=== PATIENT | female | born 1945 | race Caucasian/White ===

== ENCOUNTER 2018-08-01 20:43 | Emergency (ER) | payer OTHER, SELFPAY ==
[2018-08-01 20:43] VITALS: BP 158/71; PULSE 87; RESP 16; TEMP 36.5; O2SAT 95; BMI 31.0
--- NOTE | 2018-08-01 21:10 | ED.DCSUM_ITS ---
History of Present Illness Chief Complaint: Lower Extremity Injury Informant: Patient Occurred: Today Onset: Today Context: Sudden Onset Timing: Continuous Quality of Pain: Dull Location: Posterior lateral right knee Current Severity: Mild Maximum Severity: Severe Worsened by: Flexion and extension and weightbearing Relieved by: Nothing Associated Symptoms: Negative for: Parasthesia, Weakness, Loss of Funtion Narrative: Meniscal repair by Dr. Jono cD. Since with pain that she localizes posterior lateral right knee walking up steps. There is no history of direct trauma. She states the right knee is normally larger than the left. She states she is unable to extend come completely which is not abnormal. She is not able to flex past 120 degrees, which is abnormal. There is no history of PE or DVT. She denies paresthesia, anesthesia or motor weakness. Tetanus Immunization: 5-10 years Prior similar symptoms: Yes Recent Illness/Hospitalization: No - Past Medical History (1) No significant past medical history Status: Acute Past Medical History - Allergies and Home Meds Allergies/Adverse Reactions: Allergies No Known Allergies Allergy (Verified 08/01/18 20:45) Primary Care Physician: Lang Sharma DO [Primary Care Provider] - Prior records reviewed: Yes Surgical History: - - Meniscus repair by Dr. Jono Dc Smoking Status: Never smoker Drugs: None Review of Systems General: Denies: Chills, Fever, Sweats, Weight loss Musculoskeletal: Reports: Extremity Pain. Denies: Myalgias, Arthralgias, Neck pain, Back pain, Swelling Neurological: Denies: Weakness, Parasthesia, Numbness Hematologic: Denies: Easy bruising, Easy bleeding Physical Exam Vital Signs/Narrative: Vital Signs Temp Pulse Resp BP Pulse Ox 08/01/18 20:43 97.7 F L 87 16 158/71 H 95 Inital Vital Signs reviewed: Yes - Extremity Exam Right Femur: Negative for: Abrasion, Contusion, Deformity, Edema, Hematoma, Limited ROM, - Right Knee: Limited ROM - Extension to 170 degrees and flexion to 120 degrees. The right knee is swollen compared to the left. The patella is not ballotable. There is no obvious effusion. There is laxity with varus stress testing with increased discomfort. There is no laxity of the medial collateral ligament with valgus stress testing. Unable to perform Ángel's test because unable to flex past 120 degrees. Attempt to perform modified Darron's test resulted in a audible click and pain but unable to localize.. Negative for: Abrasion, Contusion, Deformity, Edema, Hematoma Right Tib fib: Negative for: Abrasion, Contusion, Deformity, Edema, Hematoma, Limited ROM, - Right Ankle: Negative for: Abrasion, Contusion, Deformity, Edema, Hematoma, Limited ROM, - General: Well nourished, Well developed Head: Normocephalic, Atraumatic Eyes: Perrl, EOMI Cardiovascular: Regular rate, Regular rhythm Respiratory: No distress Neurological: Alert, Oriented x3, Cranial nerves II-XII grossly intact, Normal Strength, Normal Sensation. Negative for: Normal Gait Psychological: Normal affect, Normal Mood Diagnostic/Tx/Re-eval Chest X-Ray - ED: Read by ED Physician 4 view x-ray of the knee was obtained. There is significant degenerative changes. There is asymmetry of the joint. There is calcification of the popliteal artery. There is no fracture noted. There is no obvious effusion noted. - Medical Decision Making Patient was offered pain medicine, which she declined. She states she took medicine prior to presentation. Because of limited range of motion and laxity of the lateral collateral ligament with possible positive modified Darron's test will obtain x-ray of the knee. Suspect meniscus injury. X-ray was unremarkable. Suspect probable posterior lateral meniscus injury/tear. Since she had surgery by Dr. Jono Dc in the past will refer her to Jono Dc. ED Disposition - Plan for ED Patient: Disposition: Home or Assisted Living Diagnosis: Acute lateral meniscus tear of right knee Instructions: ED Meniscal Injury Knee Poss Referrals: Lang Sharma DO [Primary Care Provider] - Jono Dc MD [STAFF PHYSICIAN] - 5-7 Days Additional Instructions: Weight-bear as tolerated. Ice to knee 6-8 times a day. Take either Tylenol or ibuprofen for your discomfort. Follow-up with Dr. Dc in 5-7 days for re- evaluation/examination.
--- NOTE | 2018-08-01 21:20 | RAD_ITS ---
STUDY: X-RAY - RIGHT KNEE REASON FOR EXAM: Female, 72 years old. Unable to bear weight TECHNIQUE: 4 view(s) of the knee. COMPARISON: None. FINDINGS: Normal visualized distal femur. Normal visualized proximal tibia and fibula. Normal proximal tibiofibular articulation. Degenerative spurring at the medial femorotibial compartment. Degenerative spurring at the lateral femorotibial compartment. Degenerative spurring and narrowing at the patellofemoral articulation. Mild suprapatellar effusion. The soft tissue structures are unremarkable. Vascular calcifications. RAD/Knee 4 or More Views IMPRESSION: Degenerative changes of the knee. Mild suprapatellar effusion. Electronically Signed: Trav Salgado DO at 21:38 EDT Tel [phone], Service support ,
== END 2018-08-01 21:53 | disposition home or self-care (01) ==
PROVIDERS: Emergency Provider Emergency Medicine; Family Provider Family Medicine; PCP Family Medicine
DX: S83.281A Other tear of lateral meniscus, current injury, right knee, initial encounter (principal); X58.XXXA Exposure to other specified factors, initial encounter; Y93.9 Activity, unspecified; Y92.9 Unspecified place or not applicable; Y99.9 Unspecified external cause status
CPT/HCPCS: 73564; 99282

== ENCOUNTER 2022-10-26 08:03 | Emergency (ER) | payer OTHER, SELFPAY ==
[2022-10-26 08:04] VITALS: BP 167/93; PULSE 79; RESP 16; TEMP 36.3; O2SAT 93; BMI 34.4
--- NOTE | 2022-10-26 08:06 | NURSING ---
NO OLD EKGS
--- NOTE | 2022-10-26 08:12 | ED.VIS.CHEST ---
HPI History of Present Illness Chief Complaint: Chest Pain Narrative Narrative: 76-year-old female past medical history of type 2 diabetes on metformin presents with dizziness and chest pain that she had this morning. She states she woke up this morning around 630, almost 2 hours ago and was dizzy and lightheaded. She crawled to the bathroom, she checked her sugar and it was 87. She went to lay down for rest and experienced 6 to 7 minutes of chest pain. She describes it more like a pressure in the left side of her chest. That has resolved and not returned. She also states that she is no longer dizzy or lightheaded. There was no nausea or vomiting accompanied with this. No diaphoresis or shortness of breath. She denies any other symptoms and states she almost feels back to normal. She is pain-free currently. [facility] Medical History (Updated 10/26/22 @ 11:12 by Rip Nunn MD) Diabetes High cholesterol Home Medications metformin 1,000 mg tablet 1,000 mg PO BID 10/26/22 [History Last Taken Unknown] rosuvastatin 20 mg tablet 20 mg PO .weekly 10/26/22 [History Last Taken Unknown] Allergy/AdvReac Type Severity Reaction Status Date / Time No Known Allergies Allergy Verified 10/26/22 08:04 Social History Smoking Status: Never smoker ROS ROS ED ROS Narrative Constitutional: No fever, no chills. HEENT: No sore throat. No neck pain. No loss of vision. No rhinorrhea. Cardiovascular: Left-sided chest pressure/chest pain. No palpitations. No pedal edema. Respiratory: No cough, no shortness of breath. Abdominal: No abdominal pain. No nausea. No vomiting. Genitourinary: No dysuria. No hematuria. Musculoskeletal: No myalgias. No arthralgias. Neurologic: No headaches. Positive dizziness. No lightheadedness. Skin: No rash. No change in color. Psychiatric: No depression. No anxiety. EXAM Physical Exam Narrative Exam Narrative: Afebrile. Vital signs noted. HEENT: Normocephalic. Atraumatic. PERRL, EOMI. Neck soft and supple. No point tenderness or step off. Cardiovascular: Regular rate and rhythm. No murmurs, rubs, or gallops appreciated. Respiratory: No tachypnea. Lungs clear to auscultation bilaterally. Gastrointestinal: Abdomen soft, nontender, with normoactive bowel sounds. No rebound or guarding. Neurological: Awake. Alert. Nonfocal, nonlateralizing. Skin: No rash. Normal color. No pallor. Musculoskeletal: No pedal edema. Full range of motion extremities. Const Vital Signs: 10/26/22 08:04 10/26/22 08:10 10/26/22 08:14 Temperature 97.4 F L Temperature Source Temporal Pulse Rate 79 Respiratory Rate 16 Respiratory Effort Normal Non-Labored Blood Pressure 167/93 H Blood Pressure Mean 117 Pulse Ox 93 94 Oxygen Delivery Method Room Air 10/26/22 09:15 Temperature Temperature Source Pulse Rate 69 Respiratory Rate 16 Respiratory Effort Blood Pressure 167/78 H Blood Pressure Mean 107 Pulse Ox 97 Oxygen Delivery Method Room Air Heart Score History: Slightly/Non-Suspicious ECG: Normal Age: >/= 65 years Risk Factors: 1 or 2 Risk Factors Score: 3 MDM MDM MDM Narrative Medical decision making narrative: In the differential diagnosis is transient hypoglycemia, acute coronary syndrome, and vasovagal near syncope. Chest pain work-up was pursued. She does have risk factors that include her age and diabetes. EKG was obtained and interpreted by myself independently as normal sinus rhythm with first-degree AV block at 81 bpm without ectopy or acute ST changes, although she does have T wave inversion inferiorly. There may be slight ST depression laterally, but no prior with which to compare. No STEMI. She was administered aspirin. I reviewed the patient's laboratory work and she has a normal white count of 4.9, hemoglobin normal at 12.1, hematocrit 37.9, normal platelet count of 165. BMP is also grossly unremarkable except for chloride slightly elevated at 111 which I think is nonspecific, normal BUN of 15, normal creatinine of 0.86. While glucose is elevated at 194. She has a normal anion gap/low at 4. I am not concerned for diabetic ketoacidosis. Her initial high-sensitivity troponin is 26. I reviewed her chest x-ray independently and see no evidence of acute pneumothorax or pneumonia. I reviewed the radiology report which confirms my independent interpretation. Her 2-hour troponin is 38, and still negative. She has a delta that is less than 20. She has also had 2 negative troponins. I do not feel she requires observation at this time. She has remained pain-free. According to the high-sensitivity troponin guidelines, it was felt she can be discharged to follow-up with cardiology as her troponins are negative. I spoke with the patient and her family. They relate history that about a month or so ago she went to her primary care provider who performed an EKG, which was faxed to a specialist in [place]. They have set up an appointment with the assistant front office manager/specialist for today at 3 PM. These may be the EKG changes which I noticed on my interpretation. Additionally, they state that she was given nitroglycerin to take, but she did not take it this morning because she did not know what it was. While I do not feel that she requires admission here, I do feel that she may need outpatient stress testing. I feel she can be discharged to follow-up with cardiology today. Through shared decision making and discussion with the patient, she would like to be discharged to follow-up with cardiology today, however strict return instructions to the emergency department were reviewed. Disposition is discharged home in stable condition. History & Record Review Discussion w/independent historian: Patient and Family Additional record(s) reviewed:: Prior ED visit Lab Data Attestation: I reviewed the patient's lab results. Labs: Laboratory Results - last 24 hr 10/26/22 10/26/22 08:09 10:09 WBC 4.9 RBC 4.47 Hgb 12.1 Hct 37.9 MCV 84.8 MCH 27.1 MCHC 31.9 L RDW Std Deviation 39.2 RDW Coeff of Waqar 12.8 Plt Count 165 MPV 10.1 Immature Gran % (Auto) 0.400 Neut % (Auto) 51.1 Lymph % (Auto) 37.5 Gates % (Auto) 6.3 Eos % (Auto) 4.3 Baso % (Auto) 0.4 Absolute Neuts (auto) 2.5 Absolute Lymphs (auto) 1.84 Nucleated RBC % 0 Sodium 142 Potassium 3.9 Chloride 111 H Carbon Dioxide 27.0 Anion Gap 4 L BUN 15 Creatinine 0.86 Estim Creat Clear Calc 55.81 Est GFR (MDRD) Af Amer 83 Est GFR (MDRD) Non-Af 69 BUN/Creatinine Ratio 17.5 Glucose 194 H Calcium 8.7 Troponin I High Sens 26 38 Radiography Diagnostic Testing: Clinical Impression(s) from Imaging Studies Chest X-Ray 10/26/22 08:25 IMPRESSION: Normal x-ray examination of the chest. Electronically Signed: Kevin Bustos MD at 8:37 EDT , Discharge Plan Triage Chief Complaint: Chest Pain ED Provider: Rip Nunn Dx/Rx/DC Orders Clinical Impression: Dizziness, Abnormal EKG, Chest pain Instructions: ED Chest Pain, Uncertain Cause, ED Dizziness, Uncertain Cause Prescriptions: No Action metformin 1,000 mg tablet 1,000 mg PO BID Patient Comments: TAKE 1 TABLET BY MOUTH TWICE DAILY rosuvastatin 20 mg tablet 20 mg PO .weekly Patient Comments: TAKE 1 TABLET BY MOUTH ONCE A WEEK Primary Care Provider: Lang Sharma Referrals: Lang Sharma DO [Primary Care Provider] - Activity Restrictions/Additional Instructions: Follow-up with the assistant front office manager as scheduled today at 3 PM. Disposition Disposition: Home, Self Care
[2022-10-26 08:14] VITALS: O2SAT 94
[2022-10-26] MEDS: Aspirin 81 MG TAB.CHEW 324 MG PO (08:19)
--- NOTE | 2022-10-26 08:25 | RAD_ITS ---
STUDY: X-RAY CHEST REASON FOR EXAM: Female, 76 years old. chest pain TECHNIQUE: Single AP portable view of the chest. COMPARISON: None. FINDINGS: The lungs are clear and expanded. There is no demonstrated pleural abnormality. Normal size heart. Normal mediastinum and augusto. Normal visualized pulmonary arteries. Normal visualized aortic arch and descending thoracic aorta. Normal visualized thoracic spine. Normal visualized ribs, clavicles, and shoulders. There is no demonstrated abnormality of the visualized soft tissue structures of the upper abdomen. RAD/Chest 1 View (Portable) IMPRESSION: Normal x-ray examination of the chest. Electronically Signed: Kevin Bustos MD at 8:37 EDT ,
[2022-10-26 08:31] LABS: Absolute Lymphocyte Count 1.84 X10^3/uL (0.83-4.51); Absolute Neutrophil Count 2.5 X10^3/uL (2.0-7.7); Basophil# 0.02 X10^3/uL; Basophil% 0.4 % (0-1); Eosinophil# 0.21 X10^3/uL; Eosinophils% 4.3 % (0-5); Hematocrit 37.9 % (37-47); Hemoglobin 12.1 g/dL (12.0-15.0); Lymphocyte # 1.84 X10^3/ul (0.83-4.51); Lymphocyte % 37.5 % (19-41); Mean Corp Hgb Conc 31.9 g/dL (32-36); Mean Corpuscular Hgb 27.1 pg (27.0-32.0); Mean Corpuscular Volume 84.8 fL (81-99); Mean Platelet Vol. 10.1 fl (6.2-12.0); Monocyte# 0.31 X10^3/uL; Monocyte% 6.3 % (0-10); NRBC Flagged by Analyzer 0 % (0-5); Neutrophil # 2.51 X10^3/uL (2.7-7.7); Neutrophil % 51.1 % (47-70); Platelet Count 165 K/mm3 (150-450); RBC Distribution Width CV 12.8 % (11.6-14.6); RBC Distribution Width SD 39.2 fl (35.1-43.9); Red Blood Count 4.47 M/mm3 (4.2-5.4); White Blood Count 4.9 K/mm3 (4.4-11.0)
[2022-10-26 08:49] LABS: Anion Gap 4 (5-15); BUN 15 mg/dL (7-18); BUN/Creat Ratio 17.5 RATIO (10-20); Calcium,Total 8.7 mg/dL (8.5-10.1); Chloride 111 mmol/L (98-107); Creatinine, Serum 0.86 mg/dL (0.55-1.02); EST Glomerular Filtration Rate 69 mL/min (>60); Est Glom Filt Rate - Afr Amer 83 mL/min (>60); Estimated Creatinine Clearance 55.81 ml/min; Glucose 194 mg/dL (74-106); Potassium 3.9 mmol/L (3.5-5.1); Sodium Level 142 mmol/L (136-145); Troponin-I HS (w/2H Reflex) 26 pg/mL (3.0-54.0)
[2022-10-26 09:15] VITALS: BP 167/78; PULSE 69; RESP 16; O2SAT 97
[2022-10-26 10:27] LABS: Reflex Troponin-HS? (from REC) Y
[2022-10-26 10:59] LABS: Troponin-I HS 38 pg/mL (3.0-54.0)
[2022-10-26 11:38] VITALS: BP 126/74; PULSE 61; RESP 15; O2SAT 98
== END 2022-10-26 11:40 | disposition home or self-care (01) ==
PROVIDERS: Emergency Provider Emergency Medicine; PCP Family Medicine; Visit Provider Emergency Medicine
DX: R42 Dizziness and giddiness (principal); E11.65 Type 2 diabetes mellitus with hyperglycemia; R07.9 Chest pain, unspecified; Z79.84 Long term (current) use of oral hypoglycemic drugs; I44.0 Atrioventricular block, first degree; E78.00 Pure hypercholesterolemia, unspecified; Z79.899 Other long term (current) drug therapy
CPT/HCPCS: 71045; 80048; 84484; 85025; 93005; 99285; A4216

== ENCOUNTER → 2022-12-08 | Outpatient (CLI) | payer SELFPAY, OTHER ==
--- NOTE | 2022-12-08 08:11 | VDLE_ITS ---
Reason For Study: LLE Swelling RIGHT LEFT CFV is compressible, spontaneous, phasic, CFV is compressible, spontaneous, phasic, competent and demonstrates normal competent, and demonstrates normal augmentation. augmentation. Procedure FV is compressible, spontaneous, phasic, This is a venous duplex using B-mode, color competent and demonstrates normal flow and spectral Doppler. augmentation. Exam performed in department. POP V is compressible, spontaneous, phasic, A preliminary report was called and/or faxed competent and demonstrates normal to Dr. Sharma. augmentation. T/P Trunk is compressible. PTV is compressible. LT PerV is compressible. Lt GSV harvested for CABG 11/11/22 Hypoechoic, non vascular structures noted in areas of Lt GSV harvesting from prox thigh to prox calf. VL/Venous Duplex US, Unilateral Interpretation Summary Deep veins of the left lower extremity are patent and compressible segmentally. There is no evidence of left lower extremity deep vein thrombosis. Hypoechoic, non vascular structur es noted in areas of left GSV harvesting from proximal thigh to proximal calf. Ordering Physician: Lang Sharma Referring Physician: Lang Sharma Performed By: Fadumo Morton, RDCS, RVT
== END | disposition home or self-care (01) ==
PROVIDERS: PCP Family Medicine; Referring Provider Family Medicine; Visit Provider Family Medicine
DX: M79.89 Other specified soft tissue disorders (principal)
CPT/HCPCS: 93971

== ENCOUNTER → 2023-01-13 | Outpatient (CLI) | payer SELFPAY, OTHER ==
--- NOTE | 2023-01-13 10:09 | ECHOD_ITS ---
Reason For Study: CABG, pericardial condition Procedure This was a 2D Doppler, Color Flow transthoracic echocardiogram. Exam performed in department. Left Ventricle Normal LV size. Left ventricular systolic function is normal. The estimated ejection fraction is 54 %. Stage 1 diastolic dysfunction. No regional wall motion abnormalities noted. Right Ventricle Normal RV size. Normal systolic function. Atria Normal left atrium. Normal right atrium. Mitral Valve Normal mitral valve. Tricuspid Valve Normal tricuspid valve. Mild tricuspid valve insufficiency. Pulmonary artery systolic pressure is 37 mmHg. Aortic Valve Trisinus/trileaflet aortic valve. Mild focal aortic valve calcification. Mild aortic stenosis. Pulmonic Valve Normal pulmonic valve. Great Vessels Normal aortic root. Pericardium/Pleural No pericardial effusion. MMode/2D Measurements & Calculations LVIDd: 4.4 cm IVSd: 1.2 cm LVOT diam: 2.0 cm LVIDs: 3.3 cm LVPWd: 1.1 cm LVOT area: 3.1 cm2 RVDd: 4.2 cm FS: 25.1 % Ao root diam: 3.3 cm LAV(MOD-bp): 59.9 ml LVAd ap4: 33.6 cm2 LAV(MOD-bp) Indexed: 31.1 ml/m2 LVLd ap4: 8.3 cm LAV(MOD-sp2): 59.0 ml EDV(MOD-sp4): 112.6 ml LAV(MOD-sp4): 59.1 ml EDV(sp4-el): 115.6 ml LVAs ap4: 19.7 cm2 LVLs ap4: 6.7 cm ESV(MOD-sp4): 49.3 ml ESV(sp4-el): 49.0 ml EF(MOD-sp4): 56.2 % EF(sp4-el): 57.6 % LVAd ap2: 32.4 cm2 SV(MOD-sp4): 63.3 ml SV(MOD-sp2): 56.5 ml LVLd ap2: 8.6 cm EDV(MOD-sp2): 105.8 ml EDV(sp2-el): 103.6 ml LVAs ap2: 20.0 cm2 LVLs ap2: 6.7 cm ESV(MOD-sp2): 49.3 ml ESV(sp2-el): 50.9 ml EF(MOD-sp2): 53.4 % SV(sp4-el): 66.6 ml LA dimension(2D): 4.1 cm LA A4 area: 19.7 cm2 RA A4 area: 14.8 cm2 TAPSE: 1.3 cm Time Measurements MV dec time: 0.16 sec Doppler Measurements & Calculations MV E max lee: 88.2 cm/sec Lat Peak E' Lee: 14.9 cm/sec Med Peak E' Lee: 6.9 cm/sec MV A max lee: 108.5 cm/sec E/E' lat: 5.9 E/E' med: 12.7 MV E/A: 0.81 MV V2 max: 113.4 cm/sec MV P1/2t max lee: 107.1 cm/sec Ao V2 max: 203.1 cm/sec MV max P.1 mmHg MV P1/2t: 57.9 msec Ao max P.5 mmHg MV V2 mean: 69.9 cm/sec Ao V2 mean: 150.2 cm/sec MV mean P.2 mmHg MV dec slope: 541.5 cm/sec2 Ao mean P.1 mmHg MV V2 VTI: 25.2 cm MVA(P1/2t): 3.8 cm2 Ao V2 VTI: 46.6 cm AV (velocity ratio): 0.46 MVA(VTI): 2.6 cm2 DARYL(I,D): 1.4 cm2 DARYL(V,D): 1.4 cm2 LV V1 max: 94.4 cm/sec SV(LVOT): 66.2 ml PA V2 max: 102.8 cm/sec LV V1 max P.6 mmHg PA V2 mean: 74.1 cm/sec LV V1 mean P.1 mmHg LV V1 mean: 67.5 cm/sec LV V1 VTI: 21.3 cm TR max lee: 288.2 cm/sec TR max P.2 mmHg ECHO/Echo Complete Interpretation Summary Normal LV size. Left ventricular systolic function is normal. The estimated ejection fraction is 54 %. Stage 1 diastolic dysfunction. Ordering Physician: Lang Sharma Referring Physician: Lang Sharma Performed By: Diamond Chapa RDCS, RVT
== END | disposition home or self-care (01) ==
PROVIDERS: PCP Family Medicine; Visit Provider Family Medicine
DX: Z95.1 Presence of aortocoronary bypass graft (principal)
CPT/HCPCS: 93306